=== PATIENT | female | born 1945 | race African-American/Black ===

== ENCOUNTER 2016-07-17 12:22 | Emergency (ER) | payer MEDICARE, MEDICAID ==
[~2016-07-17] VITALS: Ht 162.6 cm; Wt 85.0 kg
[~2016-07-17 12:22] MED LIST: AMLO10TA80 PO; ASPI-785 PO; ATEN50TA PO; CHOL100046 PO; GLIP10TA10 PO; GLYB5TAB4 PO; ISOS60TA PO; METF1000 PO; SIMV20TA6 PO
[2016-07-17] MEDS ORDERED: IBUPROFEN 600MG TABLET PO ONE (17:45)
[2016-07-17 18:14] VITALS: BP 143/79
== END 2016-07-17 20:16 | disposition home or self-care (01) ==
LOC: ER 12:22
DX: M54.5 Low back pain (principal); M25.552 Pain in left hip; M25.512 Pain in left shoulder; E11.9 Type 2 diabetes mellitus without complications; M47.897 Other spondylosis, lumbosacral region; I10 Essential (primary) hypertension; E78.00 Pure hypercholesterolemia, unspecified; Z88.6 Allergy status to analgesic agent; Z88.2 Allergy status to sulfonamides; Z88.8 Allergy status to other drugs, medicaments and biological substances; Z91.018 Allergy to other foods; W01.0XXA Fall on same level from slipping, tripping and stumbling without subsequent striking against object, initial encounter; Y92.018 Other place in single-family (private) house as the place of occurrence of the external cause
CPT/HCPCS: 72131; 72192; 99284